=== PATIENT | female | born 1945 | race Caucasian/White ===

== ENCOUNTER 2020-12-27 07:08 | Day surgery (SDC) | payer OTHER ==
[2020-12-24 15:05] LABS: Absolute Lymphocytes (CBC) 1.7 K/uL (0.7-4.9); Basophils % 1.1 % (0-1.3); Hematocrit 36.1 % (36.0-45.0); Lymphocytes % 28.8 % (15.3-44.8); MPV 8.1 fL (7.6-11.3); RBC Red Blood Cell Count 3.83 M/uL (3.86-4.86)
[2020-12-24 15:22] LABS: Potassium 4.1 mmol/L (3.5-5.1)
--- NOTE | 2020-12-24 15:37 | RAD REPORT ---
EXAM DESCRIPTION: RAD - Chest Pa And Lat (2 Views) - 12/24/2020 3:32 pm CLINICAL HISTORY: preop Chest pain. COMPARISON: CHEST PA AND LAT 2 VIEW dated 09/16/2012 FINDINGS: The lungs are clear. The heart is normal in size. No displaced fractures. IMPRESSION: No acute or concerning finding suspected.
--- OUTSIDE RECORDS SUMMARY | 2020-12-27 07:10 | XMS REPORT | Clinical Summary ---
:1945 Author Organization [facility] Address [address] [place] [address] Care Team Providers Name Role Phone Farhan Patel MD Primary Care Provider Allergies No Known Active Allergies Medications Medication Sig Dispensed Refills Start Date End Date Status atorvastatin (LIPITOR) 10 0 12/24/2017 Active MG tablet metoprolol succinate XL 0 12/24/2017 Active (TOPROL-XL) 100 mg 24 hr tablet spironolactone 0 12/24/2017 Acti ve (ALDACTONE) 50 MG tablet aspirin (ECOTRIN) 81 MG Take 81 mg by 0 Active enteric coated tablet mouth daily. Active Problems Problem Noted Date Essential hypertension 04/09/2018 Palpitation 04/09/2018 SOB (shortness of breath) 04/09/2018 Surgical History Surgery Date Site/Laterality Comments TONSILLECTOMY GALLBLADDER SURGERY APPENDECTOMY Medical History Medical History Date Comments Hypertension Family History Medical History Relation Name Comments No Known Problems Father No Known Problems Mother Relation Name Status Comments Father Mother Social History Tobacco Use Types Packs/Day Years Used Date Never Smoker Smokeless Tobacco: Never Used Alcohol Use Drinks/Week oz/Week Comments No Sex Assigned at Date Recorded Not on file Obstetrics History Grav Para Term Pre Abrt (TAB) (SAB) (Ect) Mult Lvng Comments 2 2 Date Outcome GA Total Labor/2nd/3rd Weight Sex Delivery Anes PTL Marlene A 1 A5 Name Clin Labor Para Para Last Filed Vital Signs Not on file Plan of Treatment Health Maintenance Due Date Last Done Comments COVID-19 VACCINE (1 of 2) 1959 HEPATITIS C SCREENING 1961 SHINGLES VACCINES (#1) 1993 65+ PNEUMOCOCCAL VACCINE (1 of 1 - PPSV23) 2008 INFLUENZA VACCINE 06/19/2020 Results Not on fileafter 12/27/2019 Insurance Payer Benefit Plan / Subscriber ID Effective Phone Address T ype Group Dates MEDICARE MEDICARE PART [id number] 2008-Donald EDMONDS, T X Medicare A AND B nt [employer] [id number] 2017-[employer] AND CASUALTY AND CASUALTY nt Advance Directives For more information, please contact: [phone] Type Date Recorded Patient Physicians Assistant Explanati on Advance Directives, Living Will and Medical Power of [employer]
[2020-12-27] MEDS ORDERED: DIAZEPAM 5 MG TABLET ONE (07:29)
[2020-12-27] MEDS ORDERED: ACETAMINOPHEN 325 MG TABLET ONE (07:29)
[2020-12-27] MEDS ORDERED: Ringers Lactate 1,000 ML IV ONE (08:03)
[2020-12-27] MEDS: CEFAZOLIN/SWI 1gm 1 GM/10 ML SYR ONE ×2 (09:58→11:02)
[2020-12-27] MEDS ORDERED: LIDOCAINE 2% MPF 5 ML VIAL ONE (10:32)
[2020-12-27] MEDS ORDERED: propofoL 200 MG/20 ML VIAL IV ONE (10:32)
[2020-12-27] MEDS ORDERED: FENTANYL CITR 100 MCG/2 ML ONE (10:32)
[2020-12-27] MEDS ORDERED: MIDAZOLAM HCL 2 MG/2 ML INJ ONE (10:33)
[2020-12-27] MEDS ORDERED: METHYLENE BLUE 0.5% 10 ML AMP ONE (11:09)
[2020-12-27] MEDS: METHYLENE BLUE 0.5% 10 ML AMP ONE ×2 (11:20→13:06)
[2020-12-27] MEDS ORDERED: ONDANSETRON 4 MG/2 ML VIAL ONE ×2 (11:33→13:59)
[2020-12-27] MEDS ORDERED: KETOROLAC 30 MG/ML INJ ONE (11:33)
[2020-12-27] MEDS ORDERED: dexAMETHasone 4 MG/ML VIAL ONE (11:33)
[2020-12-27] MEDS: Ringers Lactate 1,000 ML IV ONE ×2 (12:01→13:05)
--- NOTE | 2020-12-27 12:22 | RAD REPORT ---
EXAM DESCRIPTION: US - Brst,Preop NL Wire Init w/Guid - 12/27/2020 11:08 am CLINICAL HISTORY: S Left breast mass. Preop wire localization. COMPARISON: BREAST/AXILLA, LIMITED dated 11/06/2016; C Spine Wo Cont dated 12/26/2019; 3D SCR MARYBETH BILA T W/CAD dated 11/02/2020; DGTL DIAG UNI F/U dated 11/17/2020; Chest Pa And Lat (2 Views) dated 12/24/19 21 FINDINGS: Preoperative diagnosis: Left breast mass. Post operative diagnosis: Same. Conscious Sedation: None Fluoroscopy time: None Contrast used: None Estimated blood loss: Minimal The left breast was prepped and draped in the usual sterile fashion. 1% lidocaine was infiltrated int o the subcutaneous tissues for local anesthesia. Real time ultrasound scanning of the left breast dem onstrated hypoechoic lesion periareolar left breast containing a post biopsy clip. Under ultrasound g uidance, a Kopan's hook wire was placed into the lesion. There were no complications. Details of proc edure were discussed with Dr. Erickson. IMPRESSION: Successful ultrasound-guided left breast mass preoperative wire localization.
[2020-12-27] MEDS: HYDROMORPHONE HCL 1 MG/ML INJ ONE ×2 (13:18→13:23)
--- NOTE | 2020-12-27 13:23 | RAD REPORT ---
EXAM DESCRIPTION: US - Surgical Specimen - 12/27/2020 1:15 pm CLINICAL HISTORY: LEFT BREAST MASS COMPARISON: Brst,Preop NL Wire Init w/Guid dated 12/27/2020 FINDINGS: Ultrasound examination of the surgical specimen was performed. The wire, mass and biopsy c lip are all seen within the specimen. Findings were communicated to Dr. Erickson.
[2020-12-27] MEDS: FENTANYL CITR 100 MCG/2 ML ONE ×2 (13:31→13:36)
[2020-12-27] MEDS ORDERED: PROMETHAZINE INJ 25 MG/ML AMP ONE (14:36)
[2020-12-27] MEDS ORDERED: HYDROCODONE/APAP 7.5/325 MG TAB ONE (15:16)
[2020-12-27 15:35] VITALS: BP 129/48; TEMP 97; O2SAT 97
--- NOTE | 2020-12-27 17:54 | OP ---
Date of Procedure: 12/27/2020 Surgeon: Jose Erickson MD Automobile Upholsterer Apprentice: CHEPE Sapp. Preoperative Diagnosis: Left breast cancer. Postoperative Diagnosis: Left breast cancer. Procedures: Needle localization, breast lumpectomy, and sentinel node biopsy. Estimated Blood Loss: Minimal. Specimen: [place] node negative for metastatic disease and left breast lumpectomy margins free. Finding: As above. Anesthesia: General. Complications: None. Disposition: The patient tolerated the procedure in stable condition and taken to Recovery in good g eneral condition. Procedure In Detail: The patient was brought to the OR and placed in supine position. General anest hesia begun. The patient was prepped and draped in the usual sterile fashion. After methylene blue was injected in the periareolar the region and the breast was massaged, subsequently current device w as used to localize the sentinel node in the left axilla. A 3 cm incision was made, subcutaneous tis arsalan was divided, deep to the subcutaneous tissue. A blue lymph node was not seen; however, a small l ymph node was appreciated, was excised and sent to Pathology. Frozen section did not reveal any evid ence of metastatic disease. That wound was irrigated. Bleeding was controlled with cautery and then 3-0 chromic was used to approximate the subcutaneous tissue and close the skin. The lumpectomy was performed and a generous incision approximately 6 x 2 cm was made and then subcutaneous ti ssues were divided and core tissue around the tip of the needle excised. Radiologist confirmed needl e location and frozen section revealed margins were free. Wound was irrigated. Bleeding was control led with electrocautery. A 3-0 chromic was used for subcutaneous tissue . Sterile dressin g was applied. The patient was awakened and taken to Recovery in good general condition. Discharge Note: The patient will go to Day Surgery and home when stable. Disposition: Home. Condition: Stable. Discharge Instructions: Resume home medications and diet. Activity as tolerated. No heavy lifting. Keep dressing clean and dry. Follow up in my office in 4 days. Call for appointment. Tylenol No. 3 one tablet p.o. q.4 p.r.n. pain, Keflex 500 mg p.o. q.6. Incentive spirometry as ordered. /MODL Voice ID: [id number] Report ID: [id number]
== END 2020-12-27 15:35 | disposition home or self-care (01) ==
LOC: OR 07:08
PROVIDERS: ATTEND Surgery
PROC: 0HBU0ZZ Excision of Left Breast, Open Approach (ICD-10-PCS; principal; 2020-12-27 09:45)
DX: C50.912 Malignant neoplasm of unspecified site of left female breast (principal); Z20.822 Contact with and (suspected) exposure to COVID-19
CPT/HCPCS: 19301; 38500; 38900; 93005; 85025; 80048; 36415; 88329 ×2; 88305; 88307; 88333; 88334; 71046; 76098; 19285; U0002; J2704; J1100; J2550; J2250; J3010 ×2; J1170; J0690; J7120 ×2; J2405 ×2